=== PATIENT | female | born 1945 | race Caucasian/White ===

== ENCOUNTER → 2016-04-23 | Outpatient (CLI) | payer OTHER ==
--- NOTE | 2016-04-26 08:09 | DX ---
DEXA Bone Densitometry Technique: DEXA scan was performed on [employer] W Bone Densitometer Indication: Osteopenia Comparator Study: February 2014 Results: Lumbar Spine BMD: 1.239 T-score: +1.7 Prior BMD: 1.239 % change: 0% Total Hip (Right) BMD: 0.816 T-score: -1.0 Prior BMD: 0.864 % Change: -5.5% Femoral Neck (Right) BMD: 0.659 T-score: -1.7 Total Hip (Left) BMD: 0.793 T-score: -1.2 Prior BMD: 0.812 % change: -2.3% Femoral Neck (Left) BMD: 0.656 T-score: -1.7 CONCLUSION: Osteopenia In comparison the prior study from February 2014 the patient measured BMD in the lumbar spine has not changed significantly. The patient's measured BMD in the right hip has decreased. Measured BMD in th e left hip has not changed significantly ADDITIONAL COMMENTS: By FRAX calculation the estimated 10 year probability of any major osteoporotic fracture is 23%. Made at 10 year probability of hip fracture is 8.1%. This patient meets the national osteoporosis Foundation guidelines for pharmacologic treatment based on 10 year hip fracture risk greater than 3% and 10 year osteoporotic risk fracture greater than 20% next Recommend pharmacologic treatment to decrease fracture risk and increased bone mineral density Degenerative changes are present in the lower lumbar spine. This will increase the measured bone dens ity of the lumbar spine. Recommend the use of other sites assess overall fracture risk Consider repeating this study in 2 years. NOTE: The risk of osteoporotic fractures increases approximately twofold for each 1.0 SD decrease in T-score. The T-score represents the standard deviations from a young normal, same sex, reference po pulation. Low bone density is not the only risk factor for fracture. Clinical factors to consider include fall risk, previous osteoporotic fractures, family history of fractures, smoking, and low body weight. Patients who have an unexpectedly low BMD may need to be evaluated for secondary causes of low bone m ineral density. In comparing the present study to a prior study, lack of a significant increase or decrease in BMD ma y signify efficacy of the patient's present treatment. Bone mineral density measurements performed with densitometers produced by different manufacturers ar e not comparable. For the most reproducible BMD measurement, subsequent exams should be performed on the same densitometer.
== END ==
LOC: BMCIMAGING 09:56
PROVIDERS: ATTEND Internal Medicine
DX: M85.80 Other specified disorders of bone density and structure, unspecified site (principal)

== ENCOUNTER → 2016-05-03 | Outpatient (CLI) | payer OTHER ==
--- NOTE | 2016-05-03 13:18 | MA ---
Screening Digital Mammogram With iCAD Indication: Routine screening. Sister diagnosed with breast cancer the age of 30. Technique: Standard cephalocaudal and mediolateral oblique projections are obtained. This examinati on is processed by the iCAD computer-aided detection system. Comparison: April 2015, March 2014, March 2013, March 2012, and February 2011. Breast density: Type B. Findings: CAD was reviewed. No suspicious microcalcifications, mass, or architectural distortion. Impression: Negative mammogram BI-RADS: 1 - Negative Recommendation: Routine screening is recommended in one year. [facility] will send a result letter to the patient. Negative mammography should not preclude additional workup of a clinically suspicious finding. The patient's information is entered into a reminder system with a target due date for her next mammo gram.
== END ==
LOC: FIMAGING 10:44
DX: Z12.31 Encounter for screening mammogram for malignant neoplasm of breast (principal); Z80.3 Family history of malignant neoplasm of breast
CPT/HCPCS: G0202

== ENCOUNTER → 2016-09-22 | Outpatient (CLI) | payer OTHER | LOC: BMCIMAGING 13:12 | PROVIDERS: ATTEND Internal Medicine | DX: D25.1 Intramural leiomyoma of uterus (principal); N92.0 Excessive and frequent menstruation with regular cycle ==

== ENCOUNTER → 2016-11-02 | Outpatient (CLI) | payer OTHER | LOC: BMCIMAGING 11:53 | PROVIDERS: ATTEND Nurse Practitioner Adult Health | DX: Z01.818 Encounter for other preprocedural examination (principal) ==

== ENCOUNTER → 2016-11-10 | Outpatient (CLI) | payer OTHER | LOC: BMCIMAGING 14:41 | PROVIDERS: ATTEND Nurse Practitioner Adult Health | DX: R22.41 Localized swelling, mass and lump, right lower limb (principal) ==

== ENCOUNTER → 2017-05-06 | Outpatient (CLI) | payer OTHER | LOC: FIMAGING 13:04 | PROVIDERS: ATTEND Internal Medicine | DX: Z12.31 Encounter for screening mammogram for malignant neoplasm of breast (principal) ==

== ENCOUNTER → 2018-05-09 | Outpatient (CLI) | payer OTHER | LOC: FIMAGING 10:23 | PROVIDERS: ATTEND Internal Medicine | DX: Z12.31 Encounter for screening mammogram for malignant neoplasm of breast (principal); Z80.3 Family history of malignant neoplasm of breast ==